=== PATIENT | male | born 1990 | race Caucasian/White ===

== ENCOUNTER 2017-09-05 14:08 | Emergency (ER) | payer SELFPAY ==
[2017-09-05 14:12] VITALS: BP 144/107
[2017-09-05] MEDS ORDERED: ONDANSETRON HCL INJ/PF 4 MG/2 ML SDV IV ONE (14:29)
[2017-09-05] MEDS ORDERED: NORMAL SALINE 1000 ML 1,000 ML IV PRN (14:29)
--- NOTE | 2017-09-05 14:32 | ER Document Report ---
ED Medical Screen (RME) - General Chief Complaint: ETOH Abuse Stated Complaint: WEAKNESS Time Seen by Provider: 09/05/17 14:29 Notes: Patient states he has been drinking for 3-4 days straight and feels dehydrated. States he has vomiting and diffuse abdominal pain. TRAVEL OUTSIDE OF THE [place] IN LAST 30 DAYS: No - Related Data Allergies/Adverse Reactions: erythromycin ethylsuccinate [From Pediazole] Allergy (Mild, Verified 09/05/17 14 :10) sulfisoxazole acetyl [From Pediazole] Allergy (Mild, Verified 09/05/17 14:10) Past Medical History - Social History Frequency of alcohol use: Heavy Drug Abuse: None - Past Medical History Cardiac Medical History: Reports: Hx Hypertension Renal/ Medical History: Denies: Hx Peritoneal Dialysis Past Surgical History: Reports: Hx Myringotomy - Immunizations Hx Diphtheria, Pertussis, Tetanus Vaccination: Yes Physical Exam - Vital signs Vitals: Temp Pulse Resp BP Pulse Ox 98.8 F 123 H 17 144/107 H 98 09/05/17 14:10 09/05/17 14:10 09/05/17 14:10 09/05/17 14:10 09/05/17 14:10 Course - Vital Signs Vital signs: Temp Pulse Resp BP Pulse Ox 98.8 F 123 H 17 144/107 H 98 09/05/17 14:10 09/05/17 14:10 09/05/17 14:10 09/05/17 14:10 09/05/17 14:10
[2017-09-05 14:52] LABS: APPEARANCE,URINE SLIGHTLY-CLOUDY; BILIRUBIN,URINE NEGATIVE (NEGATIVE); GLUCOSE, URINE NEGATIVE (NEGATIVE); KETONES,URINE TRACE mg/dL (NEGATIVE); LEUKOCYTE ESTERASE,URINE NEGATIVE (NEGATIVE); NITRITE,URINE NEGATIVE (NEGATIVE); PROTEIN,URINE 100 mg/dL (NEGATIVE); URINE SPECIFIC GRAVITY 1.028
[2017-09-05 15:12] LABS: ABSOLUTE LYMPHOCYTES (AUTO) 1.7 10^3/uL (0.5-4.7); ABSOLUTE MONOCYTES (AUTO) 0.7 10^3/uL (0.1-1.4); ABSOLUTE NEUT (AUTO) 6.9 10^3/uL (1.7-8.2); BASOPHILS % (AUTO) 0.4 % (0-2); EOSINOPHILS % (AUTO) 0.1 % (0-6); HEMATOCRIT 52.9 % (37.9-51.0); HEMOGLOBIN 18.8 g/dL (13.5-17.0); HGB HCT DIFFERENCE 3.5; LYMPHOCYTES % (AUTO) 18.6 % (13-45); MEAN CORPUSCULAR HEMOGLOBIN 34.3 pg (27.0-33.4); MEAN CORPUSCULAR HGB CONC 35.6 g/dL (32.0-36.0); MEAN CORPUSCULAR VOLUME 96 fl (80-97); MONOCYTES % (AUTO) 7.2 % (3-13); RED CELL DISTRIBUTION WIDTH 12.1 % (11.5-14.0); SEGMENTED NEUTROPHILS % (AUTO) 73.7 % (42-78); WHITE BLOOD COUNT 9.3 10^3/uL (4.0-10.5)
[2017-09-05] MEDS ORDERED: LORAZEPAM INJ 2 MG/1 ML VIAL IV ONE (15:13)
[2017-09-05] MEDS ORDERED: NORMAL SALINE 1000 ML 1,000 ML IV ONE (15:13)
[2017-09-05 15:29] LABS: ALANINE AMINOTRANSFERASE 40 U/L (21-72); ALBUMIN 4.9 g/dL (3.5-5.0); ALCOHOL 33 mg/dL (NONE DETECTED); ALKALINE PHOSPHATASE 75 U/L (38-126); ANION GAP 18 (5-19); ASPARTATE AMINO TRANSFERASE 39 U/L (17-59); BILIRUBIN,DIRECT 0.5 mg/dL (0.0-0.4); BILIRUBIN,TOTAL 1.1 mg/dL (0.2-1.3); BLOOD UREA NITROGEN 12 mg/dL (7-20); CALCIUM 9.8 mg/dL (8.4-10.2); CARBON DIOXIDE 25 mmol/L (22-30); CHLORIDE 102 mmol/L (98-107); GLUCOSE 109 mg/dL (75-110); LIPASE 236.9 U/L (23-300); POTASSIUM 4.1 mmol/L (3.6-5.0); SODIUM 145.1 mmol/L (137-145); TOTAL PROTEIN 8.2 g/dL (6.3-8.2)
[2017-09-05 15:43] LABS: URINE BARBITURATES SCREEN UNCONFIRMED POSITIVE; URINE METHADONE SCREEN NEGATIVE; URINE OPIATES LOW NEGATIVE; URINE PHENCYCLIDINE SCREEN NEGATIVE
--- NOTE | 2017-09-05 17:18 | ER Document Report ---
ED General - General Chief Complaint: ETOH Abuse Stated Complaint: WEAKNESS Time Seen by Provider: 09/05/17 14:29 Mode of Arrival: Ambulatory Information source: Patient Notes: Patient is a 26-year-old male who presents to the ER today for dehydration after binge drinking whiskey last night. Patient states he is an alcoholic and that he just got out of detox last week, then decided to drink last night. He states that he drank until 2 AM when he passed out. He states that he woke up this morning with headache and weak feeling. He states that he has had 2 episodes of vomiting today. He states that it felt different than "normal hangover." He asks about possible Antabuse. TRAVEL OUTSIDE OF THE [place] IN LAST 30 DAYS: No - Related Data Allergies/Adverse Reactions: erythromycin ethylsuccinate [From Pediazole] Allergy (Mild, Verified 09/05/17 14 :10) sulfisoxazole acetyl [From Pediazole] Allergy (Mild, Verified 09/05/17 14:10) Past Medical History - General Information source: Patient - Social History Smoking Status: Current Every Day Smoker Frequency of alcohol use: Heavy Drug Abuse: None Family History: Reviewed & Not Pertinent Patient has suicidal ideation: No Patient has homicidal ideation: No - Past Medical History Cardiac Medical History: Reports: Hx Hypertension Renal/ Medical History: Denies: Hx Peritoneal Dialysis Past Surgical History: Reports: Hx Myringotomy - Immunizations Hx Diphtheria, Pertussis, Tetanus Vaccination: Yes Review of Systems - Review of Systems Constitutional: No symptoms reported EENT: No symptoms reported Cardiovascular: No symptoms reported Respiratory: No symptoms reported Gastrointestinal: See HPI Genitourinary: No symptoms reported Male Genitourinary: No symptoms reported Musculoskeletal: No symptoms reported Skin: No symptoms reported Hematologic/Lymphatic: No symptoms reported Neurological/Psychological: See HPI Physical Exam - Vital signs Vitals: Temp Pulse Resp BP Pulse Ox 98.8 F 123 H 17 144/107 H 98 09/05/17 14:10 09/05/17 14:10 09/05/17 14:10 09/05/17 14:10 09/05/17 14:10 - Notes Notes: PHYSICAL EXAMINATION: GENERAL: Mildly ill-appearing, but in no acute distress. HEAD: Atraumatic, normocephalic. EYES: Pupils equal round and reactive to light, extraocular movements intact, sclera anicteric, conjunctiva are normal. NECK: Normal range of motion, supple without lymphadenopathy LUNGS: CTAB and equal. No wheezes rales or rhonchi. HEART: Regular rate and rhythm without murmurs ABDOMEN: Soft, no tenderness. No guarding, no rebound BACK: no vertebral tenderness, normal ROM GI/: no CVA tenderness EXTREMITIES: Normal range of motion, no pitting edema. No cyanosis. NEUROLOGICAL: mildly shaky, Cranial nerves grossly intact. Normal sensory/motor exams. PSYCH: flat affect SKIN: Warm, Dry, normal turgor, no rashes or lesions noted Course - Re-evaluation Re-evalutation: 09/05/17 18:59 Patient is not tachycardic, patient calms down with a small dose of IV Ativan. He was given IV fluids and a banana bag here. Lab work is unremarkable. I will oblige patient by prescribing him Antabuse. He has an appointment tomorrow at [facility] for detox. - Vital Signs Vital signs: Temp Pulse Resp BP Pulse Ox 98.8 F 123 H 17 144/107 H 98 09/05/17 14:10 09/05/17 14:10 09/05/17 14:10 09/05/17 14:10 09/05/17 14:10 - Laboratory Result Diagrams: 09/05/17 14:50 09/05/17 14:50 Laboratory results interpreted by me: 09/05/17 09/05/17 09/05/17 14:30 14:50 14:50 Hgb 18.8 H Hct 52.9 H MCH 34.3 H Sodium 145.1 H Direct Bilirubin 0.5 H Urine Protein 100 H Urine Ketones TRACE H Urine Urobilinogen 2.0 H Discharge - Discharge Clinical Impression: Alcohol abuse Condition: Stable Disposition: HOME, SELF-CARE Additional Instructions: Return immediately for any new or worsening symptoms. Please keep your port appointment tomorrow. Prescriptions: Disulfiram [Antabuse] 500 mg PO QAM #14 tablet Referrals: [facility] [Provider Group] - Follow up as needed
[2017-09-05] MEDS ORDERED: NORMAL SALINE 1000 ML 1,000 ML with THIAMINE HCL 100 MG, MVI, ADULT NO.1 WITH VIT K 10 ML IV SCH ×3 (18:00)
== END 2017-09-05 19:21 | disposition home or self-care (01) ==
LOC: ER 14:08
DX: F10.10 Alcohol abuse, uncomplicated (principal); R53.1 Weakness; E86.0 Dehydration; R51 Headache; F17.200 Nicotine dependence, unspecified, uncomplicated
CPT/HCPCS: 99284; 96361; 96375; 96365; 36415; 82962; 80307 ×2; 83690; 85025; 80053; 81001; J2060; J3411; J2405; J7030; J3490

== ENCOUNTER 2017-11-30 17:26 | Emergency (ER) | payer OTHER ==
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
[2017-11-30] MEDS ORDERED: DIAZEPAM 5 MG TABLET PO ONE (19:36)
[2017-11-30] MEDS ORDERED: ACETAMINOPHEN 325 MG TABLET PO ONE (20:16)
[2017-11-30] MEDS ORDERED: IBUPROFEN 600 MG TABLET PO ONE (20:16)
[2017-11-30 22:34] VITALS: BP 136/86
== END 2017-11-30 22:41 | disposition home or self-care (01) ==
LOC: ER 17:26
DX: T59.3X3A Toxic effect of lacrimogenic gas, assault, initial encounter (principal); Y92.149 Unspecified place in prison as the place of occurrence of the external cause; S40.022A Contusion of left upper arm, initial encounter; S40.021A Contusion of right upper arm, initial encounter; S80.11XA Contusion of right lower leg, initial encounter; Y04.8XXA Assault by other bodily force, initial encounter; Y93.89 Activity, other specified; F19.10 Other psychoactive substance abuse, uncomplicated; F41.9 Anxiety disorder, unspecified; R00.0 Tachycardia, unspecified; I10 Essential (primary) hypertension; F17.200 Nicotine dependence, unspecified, uncomplicated; Z88.1 Allergy status to other antibiotic agents
CPT/HCPCS: 99285

== ENCOUNTER 2017-12-03 11:48 | Emergency (ER) | payer SELFPAY ==
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
[2017-12-03 13:27] VITALS: BP 142/88
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
== END 2017-12-03 13:30 | disposition home or self-care (01) ==
LOC: ER 11:48
DX: S92.415A Nondisplaced fracture of proximal phalanx of left great toe, initial encounter for closed fracture (principal); S39.92XA Unspecified injury of lower back, initial encounter; M54.9 Dorsalgia, unspecified; M79.641 Pain in right hand; M79.672 Pain in left foot; Y09 Assault by unspecified means; Y92.149 Unspecified place in prison as the place of occurrence of the external cause; F10.10 Alcohol abuse, uncomplicated; R00.0 Tachycardia, unspecified; R06.82 Tachypnea, not elsewhere classified; I10 Essential (primary) hypertension; Z88.1 Allergy status to other antibiotic agents
CPT/HCPCS: 72125; 72128; 72131; 99284

== ENCOUNTER 2018-08-07 11:01 | Emergency (ER) | payer SELFPAY ==
[2018-08-07] MEDS ORDERED: NORMAL SALINE 1000 ML 1,000 ML IV ONE (11:36)
[2018-08-07] MEDS ORDERED: FENTANYL CITRATE INJ/PF 100 MCG/2 ML AMPUL IV ONE (11:38)
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
[2018-08-07] MEDS ORDERED: ACETAMINOPHEN 325 MG TABLET PO ONE (11:53)
[2018-08-07] MEDS ORDERED: IBUPROFEN 600 MG TABLET PO ONE (11:53)
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
--- NOTE | 2018-08-07 12:59 | RADIOLOGY REPORT (SQ) ---
EXAM DESCRIPTION: RIBS LEFT W/PA CHEST COMPLETED DATE/TIME: 08/07/2018 12:40 pm REASON FOR STUDY: fell on left side COMPARISON: 08/13/2016 TECHNIQUE: Frontal view of the chest and additional views of the left ribs acquired. NUMBER OF VIEWS: Three view. LIMITATIONS: None. FINDINGS: FRONTAL CXR: No pneumothorax. No pleural effusion. No atelectasis or infiltrates. RIBS: Acute nondisplaced fractures involving the left lateral 5th and 6th ribs. Old healed fracture involving the left lateral 10th rib. OTHER: No other significant finding. IMPRESSION: Acute nondisplaced fractures involving the left 5th and 6th ribs. No pneumothorax. COMMENT: SITE OF TRAUMA/COMPLAINT MARKED/STAMP COMPLETED: YES. TECHNICAL DOCUMENTATION: JOB ID: [id number] [employer]- All Rights Reserved Reading location - IP/workstation name: [email or web address]
[2018-08-07 14:01] VITALS: BP 136/94
== END 2018-08-07 14:18 | disposition home or self-care (01) ==
LOC: ER 11:01
DX: S22.42XA Multiple fractures of ribs, left side, initial encounter for closed fracture (principal); S50.812A Abrasion of left forearm, initial encounter; R07.81 Pleurodynia; V18.4XXA Pedal cycle driver injured in noncollision transport accident in traffic accident, initial encounter; Y93.55 Activity, bike riding; Z88.1 Allergy status to other antibiotic agents; I10 Essential (primary) hypertension
CPT/HCPCS: 99283

== ENCOUNTER 2019-05-28 22:36 | Emergency (ER) | payer SELFPAY | END 2019-05-29 01:30 | disposition left against medical advice (07) | LOC: ER 22:36 | DX: Z53.21 Procedure and treatment not carried out due to patient leaving prior to being seen by health care provider (principal) ==

== ENCOUNTER 2019-05-29 08:11 | Emergency (ER) | payer BC ==
[2019-05-29] MEDS ORDERED: MORPHINE SULFATE 10 MG/ML INJ IM ONE (10:33)
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
[2019-05-29] MEDS ORDERED: TETRACAINE HCL 0.5% OPH SOLN 4 ML OD ONE (10:58)
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
[2019-05-29] MEDS ORDERED: AMOXICILLIN TRIHYDRATE 500 MG CAPSULE PO ONE (13:20)
[2019-05-29] MEDS ORDERED: PREDNISONE 20 MG TABLET PO ONE (13:20)
[2019-05-29] MEDS ORDERED: OXYCODONE-ACETAMINOPHEN 5-325 MG TABLET PO ONE (13:20)
[2019-05-29] MEDS ORDERED: AMOXICILLIN TR/POT CLAVULANATE 500-125 MG TAB PO ONE (13:20)
[2019-05-29 13:45] VITALS: BP 172/110
== END 2019-05-29 13:40 | disposition home or self-care (01) ==
LOC: ER 08:11
DX: S02.31XB Fracture of orbital floor, right side, initial encounter for open fracture (principal); S09.93XA Unspecified injury of face, initial encounter; R07.9 Chest pain, unspecified; M25.551 Pain in right hip; Y00.XXXA Assault by blunt object, initial encounter; F17.200 Nicotine dependence, unspecified, uncomplicated; I10 Essential (primary) hypertension; H53.8 Other visual disturbances
CPT/HCPCS: 99284; 96372; 73060; 70450; 70486; 71250; 72125; A6266; J2270; J7512; J3490